=== PATIENT | male | born 1980 | race Caucasian/White ===

== ENCOUNTER 2020-03-07 12:40 | Outpatient (CLI) | payer BC, SELFPAY ==
--- NOTE | ~2020-03-07 | XR_ITS ---
EXAMINATION: XR lg joint inject/asp w image DATE: 03/07/2020 13:22 INDICATION: Left hip pain. TECHNIQUE: A time-out was performed to verify the patient's name, date of , and procedure to b e performed. The procedure including the risks, benefits, and alternatives was discussed with the pat ient. Risks discussed included bleeding and infection. The patient understood the risks and agreed to proceed. The skin overlying the left hip joint was prepped and draped in usual sterile fashion. An esthetic was administered with 1% lidocaine subcutaneously. A 22 G needle was advanced under fluoros copic guidance into the joint. Injection of 1 mL of Omnipaque 240 confirmed intra-articular position of the needle. Subsequently, injectate consisting of 5 mL 1% lidocaine and 2 mL 10 mg/mL Kenalog wa s instilled. The needle was removed and the entry site was cleaned and dressed. There were no immed iate complications. Fluoroscopy exposure time was 0.1 minutes. The total number of images was 2. FINDINGS: Real-time fluoroscopy demonstrates the needle in the left hip joint. Patient's hip and knee pain prior to procedure:0/10 and 5/10, respectively. Patient's pain following the procedure: Unchan ged. IMPRESSION: 1. Left hip joint injection of local anesthetic and steroid . Reviewed, dictated and finalized at location A.
== END 2020-03-07 12:41 | disposition home or self-care (01) ==
PROVIDERS: PCP Nurse Practitioner Family; Visit Provider Orthopaedic Surgery
DX: M25.552 Pain in left hip (principal)
CPT/HCPCS: 20610; 77002; J3301; Q9966

== ENCOUNTER 2020-04-08 09:43 | Outpatient (CLI) | payer BC, SELFPAY ==
--- NOTE | ~2020-04-08 | XR_ITS ---
EXAMINATION: XR fl inj hip LT for MR/CT DATE: 04/08/2020 10:29 INDICATION: Bilateral primary osteoarthritis of the hip. No prior surgery. TECHNIQUE: A time-out was performed to verify the patient's name, date of , and procedure to b e performed. The procedure including the risks, benefits, and alternatives was discussed with the pat ient. Risks discussed included bleeding and infection. The patient understood the risks and agreed to proceed. The skin overlying the left hip joint was prepped and draped in usual sterile fashion. Ane sthetic was administered with 1% lidocaine subcutaneously. A 22 G needle was advanced under fluorosc opic guidance into the joint. Subsequently, injectate consisting of 9 mL of 1:200 Multihance, 1:4 1% lidocaine, and 1:4 Omnipaque 240 was instilled. The needle was removed and the entry site was clean ed and dressed. There were no immediate complications. Fluoroscopy exposure time was 0.1 minutes. Th e total number of images was 3. FINDINGS: Real-time fluoroscopy demonstrates the needle and contrast in the left hip joint. IMPRESSION: 1. Successful left hip joint injection of contrast for subsequent MR arthrography. Reviewed, dictated and finalized at location A. IMPRESSION: 1. Successful left hip joint injection of contrast for subsequent MR arthrograp .
--- NOTE | ~2020-04-08 | MR_ITS ---
EXAMINATION: MR hip LT w con DATE: 04/08/2020 11:54 INDICATION: Left hip pain. Bilateral hip primary osteoarthritis. TECHNIQUE: Magnetic resonance imaging (MRI) of the left hip was performed without intravenous contras t after intra-articular injection of contrast (MR arthrogram). Sequences included axial T1-weighted F SE, axial T2-weighted FS FSE, coronal T2-weighted FS FSE, radial T1-weighted fast GRE, sagittal T2-we ighted FS FSE, and coronal and axial T2-weighted FS FSE and T1-weighted FS FSE. COMPARISON: Left hip radiographs 03/03/2020 FINDINGS: Bones/cartilage: Bone alignment is normal. No fracture. There is decreased femoral head/neck offset bilaterally, which may be seen with femoral acetabular impingement. There is a 12 mm lesion of increased T2-weighted si gnal intensity in the intertrochanteric region of proximal left femur, likely benign. The hip joints demonstrate marginal osteophytes. Left hip joint demonstrates shallow partial-thickness cartilage los s posterosuperiorly. Labrum: There is a tear of lateral left acetabular labrum. Fluid: The left hip joint is well distended by contrast. No right hip joint effusion. No significant trochan teric bursitis. Soft tissues: There is mild tendinopathy of the hamstring tendon origins. The iliopsoas tendons are normal. The kizzy ateral gluteus minimus and medius tendons are normal. IMPRESSION: 1. Mild osteoarthritis of the hips. 2. Tear of left acetabular labrum. 3. 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 Reviewed, dictated and finalized at location A. IMPRESSION: 1. Mild osteoarthritis of the hips. 2. Tear of left acetabular labrum. 3. 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
== END 2020-04-08 09:44 | disposition home or self-care (01) ==
PROVIDERS: PCP Nurse Practitioner Family; Visit Provider Orthopaedic Surgery
DX: M16.0 Bilateral primary osteoarthritis of hip (principal); R93.89 Abnormal findings on diagnostic imaging of other specified body structures; M24.152 Other articular cartilage disorders, left hip
CPT/HCPCS: 20610; 73722; 77002; A9577; Q9966

== ENCOUNTER 2020-11-10 12:27 | Outpatient (NON) | payer BC, SELFPAY ==
[2020-11-10 21:48] LABS: SARS-CoV-2 RNA PCR Negative
== END 2020-11-10 12:28 ==
LOC: ANHCOVIDDT 12:28
PROVIDERS: PCP Nurse Practitioner Family; Visit Provider Nurse Practitioner Adult Health
DX: R09.81 Nasal congestion (principal); Z20.828 Contact with and (suspected) exposure to other viral communicable diseases
CPT/HCPCS: 87635; C9803; U0003

== ENCOUNTER → 2021-11-10 11:06 | Outpatient (CLI) | payer OTHER, SELFPAY ==
[2021-11-10 20:43] LABS: SARS-CoV-2 RNA PCR Positive
== END ==
PROVIDERS: PCP Nurse Practitioner Family; Visit Provider Nurse Practitioner Family
DX: U07.1 COVID-19 (principal)
CPT/HCPCS: C9803; U0003; U0005

== ENCOUNTER 2024-09-07 07:00 | Outpatient (CLI) | payer OTHER, SELFPAY ==
--- NOTE | ~2024-09-07 | MR_ITS ---
MRI of the cervical spine Clinical History: Radiculopathy Technique: Axial T2-weighted and gradient images, and sagittal T1-weighted, T2-weighted, and STIR cony ges were acquired. Findings: There is no fracture or sublocation of the cervical spine. Vertebral bodies maintain normal height and alignment. No bone marrow signal abnormality seen. At C2-C3, C3-C4, C4-C5, there is no disc bulge or herniation. There are minimal facet joint degenerat lena changes. No spinal canal stenosis, cord compression, or neural foraminal narrowing at these level s. At C5-C6, there is a left paracentral disc extrusion, mildly compressing the thecal sac and ventral c ord at this level, impinging the exiting nerve root on the left side. There is associated left neural foraminal narrowing. Right neural foramen preserved. At C6-C7, there is minimal disc bulge. No spinal canal stenosis, cord compression, or definite neural foraminal narrowing. Paravertebral soft tissues are unremarkable. Impression: Left paracentral disc extrusion at C5-C6, impinging the exiting left-sided nerve root, and narrowing the left neural foramen is old. There is also mild flattening of the ventral cord at this level. Reviewed, dictated and finalized at location . Impression: Left paracentral disc extrusion at C5-C6, impinging the exiting left-sided nerv e root, and narrowing the left neural foramen is old. There is also mild flatte lacie of the ventral cord at this level.
== END 2024-09-07 07:01 | disposition home or self-care (01) ==
LOC: MICIMG 07:01
PROVIDERS: PCP Nurse Practitioner Family; Visit Provider Nurse Practitioner Family
DX: M54.12 Radiculopathy, cervical region (principal); M50.222 Other cervical disc displacement at C5-C6 level
CPT/HCPCS: 72141